=== PATIENT | female | born 1970 | race African-American/Black ===

== ENCOUNTER 2018-06-10 14:29 | Emergency (ER) | payer OTHER ==
[~2018-06-10] VITALS: Ht 167.6 cm; Wt 110.0 kg
[2018-06-10] MEDS ORDERED: HYDROCODONE/ACETAMINOPHEN 5/325MG TABLET PO ONE (19:15)
[2018-06-10 20:25] LABS: CLARITY URINE CLEAR (CLEAR); COLOR URINE YELLOW (YELLOW); KETONES URINE TRACE (NEGATIVE); LEUKOCYTE ESTERASE URINE NEGATIVE (NEGATIVE); NITRITE URINE NEGATIVE (NEGATIVE); OCCULT BLOOD URINE NEGATIVE (NEGATIVE); PROTEIN URINE NEGATIVE (NEGATIVE); SPECIFIC GRAVITY URINE 1.019 (1.005-1.030)
[2018-06-10 20:36] LABS: OPIATES URINE SCREEN NEGATIVE (NEGATIVE); PHENCYCLIDINE URINE SCREEN NEGATIVE (NEGATIVE)
[2018-06-10 20:37] LABS: *AMPHETAMINES SCREEN URINE NEGATIVE (NEGATIVE); *BARBITURATES SCREEN URINE NEGATIVE (NEGATIVE); *BENZODIAZEPINES SCREEN URINE NEGATIVE (NEGATIVE); *COCAINE SCREEN URINE NEGATIVE (NEGATIVE); METHADONE URINE SCREEN NEGATIVE (NEGATIVE)
[2018-06-10 20:43] LABS: CANNABINOID URINE SCREEN PRESUMTIVE POSITIVE (NEGATIVE)
[2018-06-10 21:08] VITALS: BP 128/70
== END 2018-06-10 21:10 | disposition home or self-care (01) ==
LOC: ER 14:33
DX: M25.519 Pain in unspecified shoulder (principal); R51 Headache; M54.2 Cervicalgia; M25.551 Pain in right hip; M79.604 Pain in right leg; V43.52XA Car driver injured in collision with other type car in traffic accident, initial encounter; Y93.9 Activity, unspecified; Y92.410 Unspecified street and highway as the place of occurrence of the external cause
CPT/HCPCS: 71045; 72040; 72100; 73502; 80305; 99284

== ENCOUNTER 2021-11-10 22:51 | Emergency (ER) | payer OTHER ==
[~2021-11-10] VITALS: Ht 170.2 cm; Wt 104.9 kg
[2021-11-11] MEDS ORDERED: B25 MT (02:14)
[2021-11-11 02:26] VITALS: BP 119/78
== END 2021-11-11 02:30 | disposition home or self-care (01) ==
LOC: ER 22:51
DX: S80.862A Insect bite (nonvenomous), left lower leg, initial encounter (principal); J45.909 Unspecified asthma, uncomplicated; W57.XXXA Bitten or stung by nonvenomous insect and other nonvenomous arthropods, initial encounter; Y93.9 Activity, unspecified; Y92.9 Unspecified place or not applicable; Z87.440 Personal history of urinary (tract) infections
CPT/HCPCS: 99281

== ENCOUNTER 2023-09-07 13:56 | Emergency (ER) | payer MEDICAID, OTHER ==
[~2023-09-07] VITALS: Ht 172.7 cm; Wt 96.6 kg
[~2023-09-07 13:56] MED LIST: DIPH-1207 MT
[2023-09-07 14:31] VITALS: O2SAT 98
[2023-09-07] MEDS ORDERED: LIDOCAINE HCL/PF 1% 10 MG/ML 5ML VIAL INFIL ONE (15:30)
[2023-09-07] MEDS ORDERED: BACITRACIN ZINC OINT UDPKT TOP ONE (15:30)
[2023-09-07] MEDS ORDERED: SULF1TAB48 MT (16:29)
[2023-09-07] MEDS ORDERED: CEPH500C2 MT (16:29)
[2023-09-07 16:46] VITALS: BP 147/82; PULSE 70; RESP 18; TEMP 98.1
== END 2023-09-07 16:48 | disposition home or self-care (01) ==
LOC: ER 13:56
DX: L02.212 Cutaneous abscess of back [any part, except buttock and flank] (principal); J45.909 Unspecified asthma, uncomplicated; Z98.890 Other specified postprocedural states
CPT/HCPCS: 99283; 10060; J3490